=== PATIENT | male | born 1990 | race Caucasian/White ===

== ENCOUNTER 2017-10-10 17:23 | Emergency (ER) | payer MEDICAID ==
[~2017-10-10] VITALS: Ht 182.9 cm; Wt 68.0 kg
[2017-10-10 17:28] VITALS: BP_SYST 142
[2017-10-10 18:03] LABS: BILIRUBIN,URINE NEGATIVE (NEGATIVE); BLOOD, URINE NEGATIVE (NEGATIVE); CLARITY/URINE CLEAR (CLEAR); COLOR,URINE YELLOW (YELLOW); GLUCOSE,URINE NEGATIVE (NEGATIVE); KETONES,URINE NEGATIVE (NEGATIVE); LEUKOCYTE ESTERASE ,URINE NEGATIVE (NEGATIVE); NITRITE, URINE NEGATIVE (NEGATIVE); PROTEIN URINE NEGATIVE (NEGATIVE); UROBILINOGEN,URINE 0.2 (0.2-1.0)
[2017-10-10 18:09] LABS: BASOPHILS # (AUTO) 0.1 K/uL (0.0-0.2); BASOPHILS % (AUTO) 0.8 % (0.0-2.0); EOSINOPHILS # (AUTO) 0.1 K/uL (0.0-0.4); EOSINOPHILS % (AUTO) 1.5 % (0.0-4.0); HEMATOCRIT 46.6 % (36-54); HEMOGLOBIN 15.6 g/dL (14.0-18.0); LYMPHOCYTES # (AUTO) 3.6 K/uL (1.0-5.5); LYMPHOCYTES % (AUTO) 37.6 % (20.5-51.5); MEAN CORPUSCULAR HEMOGLOBIN 32 pg (27-31); MEAN CORPUSCULAR HGB CONC 33 % (32-36); MEAN CORPUSCULAR VOLUME 95 fL (79.0-98.0); MONOCYTES # (AUTO) 0.8 K/uL (0.0-1.0); MONOCYTES % (AUTO) 8.5 % (1.7-9.3); NEUTROPHILS # (AUTO) 5.1 K/uL (1.8-7.7); NEUTROPHILS % (AUTO) 51.6 % (40.0-70.0); PLATELET COUNT (AUTO) 287 K/uL (130-430); RED BLOOD CELL COUNT(AUTO) 4.91 MIL/uL (4.2-6.2); RED CELL DISTRIBUTION WIDTH 12.4 % (9.0-15.0); WHITE BLOOD COUNT (AUTO) 9.7 K/uL (4.8-10.8)
[2017-10-10 18:15] LABS: CALCIUM 8.9 mg/dL (8.4-11.0); CREATININE 1.05 mg/dL (0.55-1.30); POTASSIUM 3.4 mmol/L (3.5-5.1)
[2017-10-10 18:19] LABS: INR 1.1 (0.80-1.20)
[2017-10-10 18:20] LABS: ALBUMIN 4.5 g/dL (3.4-4.8); TOTAL BILIRUBIN 0.6 mg/dL (0.0-1.0)
[2017-10-10] MEDS: KETOROLAC TROMETHAMINE 60 MG/2 ML VIAL IM ONE ×2 (19:14→19:35)
[2017-10-10] MEDS: HYDROcodone/ACETAMIN 10-325 MG TAB PO ONE ×2 (19:15→19:36)
[2017-10-10 19:40] VITALS: BP_SYST 137
== END 2017-10-10 19:40 | disposition home or self-care (01) ==
LOC: SED 17:23
DX: R10.32 Left lower quadrant pain (principal); R10.11 Right upper quadrant pain
CPT/HCPCS: 36415; 74176; 80053; 81003; 82150; 83690; 85025; 85610; 85730; 96372; 99285; J1885

== ENCOUNTER 2017-12-14 06:52 | Emergency (ER) | payer MEDICAID ==
[~2017-12-14] VITALS: Ht 182.9 cm; Wt 68.9 kg
[2017-12-14 06:52] VITALS: BP_SYST 121
--- NOTE | 2017-12-14 07:14 | NUR ---
Patient to ER bed 6 to gown for evaluation. Side rails up. Report given to José Luis JOHNSON.
--- NOTE | 2017-12-14 07:16 | NUR ---
ER at bedside examining patient.
[2017-12-14] MEDS ORDERED: MORPHINE 4 MG/ML INJ. SYRINGE IVP ONE (07:18)
[2017-12-14 07:19] LABS: BILIRUBIN,URINE NEGATIVE (NEGATIVE); BLOOD, URINE NEGATIVE (NEGATIVE); CLARITY/URINE CLEAR (CLEAR); COLOR,URINE YELLOW (YELLOW); GLUCOSE,URINE NEGATIVE (NEGATIVE); KETONES,URINE NEGATIVE (NEGATIVE); LEUKOCYTE ESTERASE ,URINE NEGATIVE (NEGATIVE); NITRITE, URINE NEGATIVE (NEGATIVE); PH,URINE 5.5 (5.0-8.0); PROTEIN URINE NEGATIVE (NEGATIVE); UROBILINOGEN,URINE 0.2 (0.2-1.0)
--- NOTE | 2017-12-14 07:20 | NUR ---
Pt presents to ER c/o RLQ pain that radiates to back. Pt states pain level is 10/10. Pt reports nausea, fatigue, chills. Pt reports coming to [facility] approximately 2 months ago for same complaint but now symptoms have returned and worsened. Pt denies any significant medical history or medication use at home. Pt in no acute distress upon presentation to ER or during assessment. Pt AOX4, NKDA.
--- NOTE | 2017-12-14 07:32 | NUR ---
ER at bedside examining patient.
--- NOTE | 2017-12-14 07:38 | NUR ---
Laboratory at bedside for blood draw.
[2017-12-14 07:48] LABS: BASOPHILS # (AUTO) 0.1 K/uL (0.0-0.2); BASOPHILS % (AUTO) 1.2 % (0.0-2.0); EOSINOPHILS # (AUTO) 0.1 K/uL (0.0-0.4); EOSINOPHILS % (AUTO) 2.6 % (0.0-4.0); HEMATOCRIT 44.3 % (36-54); LYMPHOCYTES # (AUTO) 1.9 K/uL (1.0-5.5); LYMPHOCYTES % (AUTO) 35.4 % (20.5-51.5); MEAN CORPUSCULAR HEMOGLOBIN 32 pg (27-31); MEAN CORPUSCULAR HGB CONC 34 % (32-36); MEAN CORPUSCULAR VOLUME 95 fL (79.0-98.0); MONOCYTES # (AUTO) 0.4 K/uL (0.0-1.0); MONOCYTES % (AUTO) 8.2 % (1.7-9.3); NEUTROPHILS # (AUTO) 2.9 K/uL (1.8-7.7); NEUTROPHILS % (AUTO) 52.6 % (40.0-70.0); PLATELET COUNT (AUTO) 321 K/uL (130-430); RED BLOOD CELL COUNT(AUTO) 4.69 MIL/uL (4.2-6.2); RED CELL DISTRIBUTION WIDTH 12.1 % (9.0-15.0); WHITE BLOOD COUNT (AUTO) 5.4 K/uL (4.8-10.8)
[2017-12-14] MEDS: NACL 0.9% 1,000 ML IV ONE (08:00)
[2017-12-14] MEDS: KETOROLAC TROMETHAMINE 30 MG VIAL IVP ONE (08:00)
--- NOTE | 2017-12-14 08:00 | NUR ---
Pt medicated and tolerated well; will continue to monitor.
[2017-12-14 08:07] LABS: CALCIUM 9.6 mg/dL (8.4-11.0); CREATININE 0.85 mg/dL (0.55-1.30)
[2017-12-14 08:13] LABS: TOTAL BILIRUBIN 0.8 mg/dL (0.0-1.0)
--- NOTE | 2017-12-14 08:23 | NUR ---
Radiology at bedside for ultrasound.
--- NOTE | 2017-12-14 08:53 | NUR ---
Pt states that pain level has decreased but is still high, pt rates pain 7-8/10. Dr. Nam aware of pt's concerns of not wanting to take pain meds as much as possible.
[2017-12-14 10:01] VITALS: BP_SYST 121
--- NOTE | 2017-12-14 10:01 | NUR ---
Patient given written and verbal discharge instructions and verbalizes understanding. ER MD discussed with patient the results and treatment provided. Patient in stable condition. ID arm band removed. IV catheter removed intact and dressing applied, no active bleeding. Rx of Alstead and Motrin given. Patient educated on pain management and to follow up with PMD. Pain Scale 2. Opportunity for questions provided and answered.
== END 2017-12-14 10:01 | disposition home or self-care (01) ==
LOC: SED 06:52
DX: R10.9 Unspecified abdominal pain (principal); R11.0 Nausea; R68.83 Chills (without fever)
CPT/HCPCS: 36415; 76700; 80053; 81003; 85025; 96361; 96374; 99285; J1885; J7030; J7060

== ENCOUNTER 2018-11-18 18:26 | Emergency (ER) | payer SELFPAY ==
[~2018-11-18] VITALS: Ht 182.9 cm; Wt 70.8 kg
[2018-11-18 18:30] VITALS: BP_SYST 127
--- NOTE | 2018-11-18 18:45 | NUR ---
TRIAGED AND BROUGHT BACK TO BED #7, REPORT GIVEN TO AUDREY
--- NOTE | 2018-11-18 19:15 | NUR ---
Pt complains of sore throat, non productive cough, and burning to chest for one week. Per patient, nausea and sore throat started one month ago but has gotten worse this past week. Pt states he spoke with a local pharmacy and asked what would help. Pt was advised to try Prilosec but states it does not work. No other injuries/complaints per patient or noted.
--- NOTE | 2018-11-18 19:21 | NUR ---
ER Dr. Nuens at bedside examining patient.
[2018-11-18] MEDS ORDERED: MAG HYDROX/AL HYDROX/SIMETH 30 ML, BELLADONNA ALKALOIDS/PHENOBARB 10 ML, LIDOCAINE VISC... PO ONE ×6 (19:45→23:00)
[2018-11-18] MEDS ORDERED: KETOROLAC TROMETHAMINE 30 MG VIAL IVP ONE (19:45)
--- NOTE | 2018-11-18 20:05 | NUR ---
Medication was administered. Pt tolerated well. No adverse reaction, will continue to monitor.
[2018-11-18 20:18] LABS: BASOPHILS # (AUTO) 0.1 K/uL (0.0-0.2); BASOPHILS % (AUTO) 0.7 % (0.0-2.0); EOSINOPHILS % (AUTO) 0.5 % (0.0-4.0); HEMOGLOBIN 15.2 g/dL (14.0-18.0); LYMPHOCYTES # (AUTO) 3.3 K/uL (1.0-5.5); LYMPHOCYTES % (AUTO) 33.2 % (20.5-51.5); MEAN CORPUSCULAR HEMOGLOBIN 33 pg (27-31); MEAN CORPUSCULAR HGB CONC 35 % (32-36); MEAN CORPUSCULAR VOLUME 93 fL (79.0-98.0); MONOCYTES # (AUTO) 0.7 K/uL (0.0-1.0); MONOCYTES % (AUTO) 7.4 % (1.7-9.3); NEUTROPHILS # (AUTO) 5.8 K/uL (1.8-7.7); NEUTROPHILS % (AUTO) 58.2 % (40.0-70.0); PLATELET COUNT (AUTO) 268 K/uL (130-430); RED BLOOD CELL COUNT(AUTO) 4.65 MIL/uL (4.2-6.2); RED CELL DISTRIBUTION WIDTH 12.1 % (9.0-15.0); WHITE BLOOD COUNT (AUTO) 9.9 K/uL (4.8-10.8)
[2018-11-18 20:24] LABS: ANION GAP 9 (5-15); CALCIUM 9.1 mg/dL (8.4-11.0); CHLORIDE 103 mmol/L (98-107); GFR AFRICAN AMERICAN 114 mL/min (>90); GLUCOSE 86 mg/dL (70-99); POTASSIUM 3.3 mmol/L (3.5-5.1); SODIUM SERUM 138 mmol/L (136-145); UREA NITROGEN, BLOOD 22 mg/dL (8-21)
[2018-11-18 20:32] LABS: ALANINE AMINOTRANSFERASE 22 U/L (12-78); ALBUMIN 4.4 g/dL (3.4-4.8); ASPARTATE AMINOTRANSFERASE 16 U/L (10-37); LIPASE 152 U/L (73-393); TOTAL BILIRUBIN 0.8 mg/dL (0.0-1.0)
--- NOTE | 2018-11-18 21:55 | NUR ---
Pt states medication "helped for an hour but then the burning started to come back." Pain is now 5/10. Dr. Chua aware.
[2018-11-18] MEDS ORDERED: MORPHINE 4 MG/ML INJ. SYRINGE IM ONE (22:00)
--- NOTE | 2018-11-18 22:07 | NUR ---
Medication was given, pt tolerated well. No adverse reaction, will continue to monitor.
[2018-11-18] MEDS ORDERED: MORPHINE 4 MG/ML INJ. SYRINGE IVP ONE (22:15)
--- NOTE | 2018-11-18 23:19 | NUR ---
Medication was given, pt tolerated well. No adverse reaction, will continue to monitor.
[2018-11-19 00:35] VITALS: BP_SYST 127
--- NOTE | 2018-11-19 00:35 | NUR ---
Patient given written and verbal discharge instructions and verbalizes understanding. ER MD Dr. Chua discussed with patient the results and treatment provided. Patient in stable condition. ID arm band removed. IV catheter removed intact and dressing applied, no active bleeding. Rx of Protonix given. Patient educated on pain management and to follow up with PMD within 2-3 days. Pain Scale 0/10. Opportunity for questions provided and answered. Medication side effect fact sheet provided.
== END 2018-11-19 00:35 | disposition home or self-care (01) ==
LOC: SED 18:26
DX: K21.0 Gastro-esophageal reflux disease with esophagitis (principal); R03.0 Elevated blood-pressure reading, without diagnosis of hypertension
CPT/HCPCS: 36415; 71045; 71250; 80053; 83690; 84484; 85025; 96374; 96375; 99284; J1885; J2001; J2270